=== PATIENT | male | born 1970 | race Native Hawaiian/Other Pacific Islander ===

== ENCOUNTER 2023-07-10 15:09 | Emergency (ER) | payer SELFPAY ==
[2023-07-10 17:11] LABS: BASOPHILS ABSOLUTE AUTO 0.04 K/uL (0.00-0.10); BASOPHILS PERCENT AUTO 0.6 % (0.1-1.3); EOSINOPHILS ABSOLUTE AUTO 0.14 K/uL (0.00-0.40); EOSINOPHILS PERCENT AUTO 2.2 % (0.0-5.4); HEMATOCRIT 38.6 % (38.4-49.7); HEMOGLOBIN 12.9 g/dL (12.9-16.9); IMMATURE GRAN ABSOLUTE AUTO 0.01 K/uL (0.00-0.23); IMMATURE GRAN PERCENT AUTO 0.2 % (0.0-0.7); LYMPHOCYTES PERCENT AUTO 22.2 % (11.4-47.7); MEAN CORPUSCULAR HEMOGLOBIN 29.3 pg (31.6-35.5); MEAN CORPUSCULAR HGB CONC 33.4 g/dL (31.6-35.5); MEAN CORPUSCULAR VOLUME 87.5 fL (81.4-99.0); MONOCYTES ABSOLUTE AUTO 0.65 K/uL (0.20-0.90); MONOCYTES PERCENT AUTO 10.3 % (3.3-12.6); NEUTROPHILS ABSOLUTE AUTO 4.07 K/uL (1.0-7.6); NEUTROPHILS PERCENT AUTO 64.5 % (40.0-78.1); PLATELET COUNT,PLT 241 K/uL (130-375); RED BLOOD CELL COUNT 4.41 M/uL (4.14-5.76); WHITE BLOOD CELL COUNT,WBC 6.3 K/uL (3.2-11.0)
[2023-07-10 17:29] LABS: CALCIUM 8.7 mg/dL (8.5-10.1); CREATININE 1.2 mg/dL (0.8-1.3); EST CRCL DRUG DOSING (CG) 64.24 mL/min; POTASSIUM,K 4.8 mmol/L (3.6-5.2)
[2023-07-10 17:30] LABS: ANION GAP 8.8 mmol/L (5.0-14.0)
[2023-07-10 17:32] LABS: HEMOGLOBIN A1C 12.7 % (4.5-6.2)
[2023-07-10] MEDS ORDERED: metFORMIN 500 MG Tab PO ONE (17:33)
== END 2023-07-10 18:26 | disposition home or self-care (01) ==
LOC: JP.ED 15:09
DX: E11.65 Type 2 diabetes mellitus with hyperglycemia (principal); Z76.0 Encounter for issue of repeat prescription; L84 Corns and callosities
CPT/HCPCS: 36415; 73630; 80048; 83036; 85025; 86140; 99284; A9270